=== PATIENT | male | born 1995 | race Two or more races ===

== ENCOUNTER 2023-08-01 14:37 | Emergency (ER) | payer MEDICAID, OTHER ==
[2023-08-01 15:28] LABS: Basophils # (auto) 0 10 ^3/uL (0-0.2); Basophils % (auto) 0.3 % (0.0-2.0); Eosinophils # (auto) 0.2 10 ^3/uL (0-0.8); Hematocrit 45.1 % (41.0-53.0); Hemoglobin 15.3 g/dL (13.5-17.5); Lymphocytes # (auto) 2.2 10 ^3/uL (0.4-5.4); Lymphocytes % (auto) 25.6 % (10.0-50.0); Mean Corpuscular Hemoglobin 29.5 pg (28.0-32.0); Mean Corpuscular Hgb Conc. 33.9 g/dL (32.0-36.0); Mean Corpuscular Volume 87.1 fL (80.0-100.0); Monocytes # (auto) 0.6 10 ^3/uL (0-1.3); Monocytes % (auto) 7.1 % (0.0-12.0); Neutrophils # (auto) 5.6 10 ^3/uL (1.6-8.6); Nucleated Red Blood Cells % 0.1 %; Red Blood Cells 5.18 10^6/uL (4.5-5.90); Red Cell Distribution Width 13.8 % (11.8-14.3); White Blood Cell 8.5 10^3/uL (4.4-10.8)
[2023-08-01] MEDS ORDERED: ASPirin 325 MG TAB PO ONE (15:30)
[2023-08-01] MEDS ORDERED: NITROGLYCERIN 0.4 MG SL TAB SL ONE (15:30)
[2023-08-01 15:35] LABS: Alanine Aminotransferase 65 U/L (7-40); Albumin 4.9 g/dL (3.2-4.8); Alkaline Phosphatase 85 U/L (46-116); Anion Gap 7 (5-15); Aspartate Aminotransferase 27 U/L (13-40); BUN/Creatinine Ratio 16.5 (10.0-20.0); Bilirubin, Total 0.7 mg/dL (0.2-1.0); Blood Urea Nitrogen 15 mg/dL (9-23); Calcium 9.6 mg/dL (8.7-10.4); Carbon Dioxide 27 mmol/L (20-30); Chloride 106 mmol/L (98-107); Glucose 86 mg/dL (74-106); Magnesium 2.2 mg/dL (1.6-2.6); Potassium 4.4 mmol/L (3.5-5.1); Sodium 140 mmol/L (136-145); Total Protein 7.2 g/dL (5.7-8.2)
[2023-08-01 15:45] LABS: INR 1.03 (0.9-1.15); Partial Thromboplastin Time 31.6 SEC (24.5-34.5); Prothrombin Time 10.8 sec (9.3-11.8)
[2023-08-01 16:12] LABS: Urine Bacteria NONE SEEN /hpf (None Seen); Urine Blood Negative /uL (Negative); Urine Clarity Clear (Clear); Urine Color Yellow (Yellow); Urine Mucus FEW (None Seen); Urine Protein, UAD Negative (Negative); Urine Specific Gravity 1.024 (1.001-1.035); Urine Urobilinogen Normal (Negative); Urine WBC 1 /hpf (0 - 3)
[2023-08-01 16:25] LABS: Amphetamine Screen, Urine Neg (NEGATIVE); Barbiturate Scree,Urine Neg (NEGATIVE); Benzodiazephine Screen, Urine Neg (NEGATIVE); Cannabinoid Screen, Urine Neg (NEGATIVE); Cocaine Screen, Urine Neg (NEGATIVE); Opiate Scree,Urine Neg (NEGATIVE); Phencyclidine Screen, Urine Neg (NEGATIVE)
[2023-08-01 19:39] VITALS: BP 136/88; TEMP 97.3; O2SAT 99
[2023-08-01 19:42] VITALS: PULSE 63; RESP 17
== END 2023-08-01 19:46 | disposition home or self-care (01) ==
LOC: ER 14:37
DX: R07.89 Other chest pain (principal); Z79.899 Other long term (current) drug therapy
CPT/HCPCS: 36415; 71045; 80053; 80307; 81001; 83735; 83880; 84484; 85025; 85379; 85610; 85730; 93005

== ENCOUNTER 2023-08-05 19:58 | Emergency (ER) | payer MEDICAID ==
[~2023-08-05] VITALS: Ht 180.3 cm; Wt 195.0 kg
[2023-08-05 20:44] LABS: Chloride 106 mmol/L (98-107); Potassium 3.8 mmol/L (3.5-5.1); Sodium 140 mmol/L (136-145)
[2023-08-05 20:45] LABS: Anion Gap 6 (5-15); Carbon Dioxide 28 mmol/L (20-30)
[2023-08-05 20:46] LABS: Calcium 10.2 mg/dL (8.5-10.1)
[2023-08-05 20:50] LABS: BUN/Creatinine Ratio 18.5 (10.0-20.0); Blood Urea Nitrogen 15 mg/dL (9-23); Glucose 90 mg/dL (74-106)
[2023-08-05 21:02] LABS: Basophils # (auto) 0 10 ^3/uL (0-0.2); Basophils % (auto) 0.3 % (0.0-2.0); Eosinophils # (auto) 0.2 10 ^3/uL (0-0.8); Eosinophils % (auto) 1.7 % (0.0-7.0); Hematocrit 45.6 % (41.0-53.0); Hemoglobin 15.2 g/dL (13.5-17.5); Lymphocytes # (auto) 2.4 10 ^3/uL (0.4-5.4); Lymphocytes % (auto) 26.2 % (10.0-50.0); Mean Corpuscular Hgb Conc. 33.4 g/dL (32.0-36.0); Mean Corpuscular Volume 86.9 fL (80.0-100.0); Monocytes # (auto) 0.7 10 ^3/uL (0-1.3); Monocytes % (auto) 7.8 % (0.0-12.0); Neutrophils # (auto) 5.8 10 ^3/uL (1.6-8.6); Red Blood Cells 5.25 10^6/uL (4.5-5.90); Red Cell Distribution Width 13.3 % (11.8-14.3)
[2023-08-05] MEDS ORDERED: IBUP-1455 PO (21:24)
[2023-08-05 21:54] VITALS: BP 128/83; TEMP 97.8
[2023-08-05 21:55] VITALS: PULSE 65; RESP 16; O2SAT 97
== END 2023-08-05 21:58 | disposition home or self-care (01) ==
LOC: ER 19:58
DX: R07.89 Other chest pain (principal)
CPT/HCPCS: 36415; 71045; 80048; 83880; 84484; 85025; 93005

== ENCOUNTER 2025-02-13 20:49 | Emergency (ER) | payer SELFPAY ==
[~2025-02-13] VITALS: Ht 180.3 cm; Wt 72.3 kg
[~2025-02-13 20:49] MED LIST: IBUP-1455 PO
[2025-02-14] MEDS ORDERED: ACET500T58 PO (00:50)
[2025-02-14] MEDS ORDERED: CEPH250C PO (00:50)
--- NOTE | 2025-02-14 00:51 | ED.PDOC ---
HPI Comments Patient is a otherwise healthy 29-year-old male who arrives the ED today for evaluation of right forearm laceration sustained approximately 1 hour prior to arrival. Patient states he was playing with the daughters when he ran into a chain link fence and cut his right forearm. Patient has a bandage and states it was actively bleeding. Patient's tetanus is up-to-date. Vital signs were stable on arrival. Chief Complaint: Laceration Time Seen by MD: 20:51 Primary Care Provider: NONE Reviewed Notes: Nurses Notes Allergies: Coded Allergies: NO KNOWN ALLERGIES (Unverified , 08/01/23) Home Meds Active Scripts Ibuprofen Micronized (Ibuprofen) 800 Mg Tab, 800 MG PO TID PRN, #60 TAB Prov:TONEY BROWN 08/05/23 Information Source: Patient Mode of Arrival: Ambulatory Severity: Moderate Severity of Laceration: Uncontrolled Bleeding Complexity: Intermediate Timing: Minutes Prehospital treatment: None Laceration Location: Arm Mechanism: Metal Last Tetanus: UTD Laceration Length (cm): 5 Skin Type: Linear Depth of Injury: Skin, Mucosa, SQ Tendon Injury: 0% Past Medical History PAST MEDICAL HISTORY: Denies Surgical History: Denies all surgeries Family History Family History: Reviewed,noncontributory to illness, No family hx of Cancer, No family hx of DM, No family hx of Heart heidy, No family hx of HTN, No family hx ofKidney heidy, No family hx of Liver heidy, No family hx of Lung heidy, No family hx of Stroke Social History Smoker: Non-Smoker Alcohol: Denies ETOH Use Drugs: Denies Drug Use Lives In: Home Constitutional: denies: chills, diaphoresis, fatigue, fever, malaise, sweats, weakness, others EENTM: denies: blurred vision, double vision, ear bleeding, ear discharge, ear drainage, ear pain, ear ringing, eye pain, eye redness, hearing loss, mouth pain, mouth swelling, nasal discharge, nose bleeding, nose congestion, nose pain, photophobia, tearing, throat pain, throat swelling, voice changes, others Respiratory: denies: cough, hemoptysis, orthopnea, SOB at rest, shortness of breath, SOB with excertion, stridor, wheezing, others Cardiovascular: denies: chest pain, dizzy spells, diaphoresis, Dyspnea on exertion, edema, irregular heart beat, left arm pain, lightheadedness, palpitations, PND, syncope, others Gastrointestinal: denies: abdomen distended, abdominal pain, blood streaked bowels, constipated, diarrhea, dysphagia, difficulty swallowing, hematemesis, melena, nausea, poor appetite, poor fluid intake, rectal bleeding, rectal pain, vomiting, others Genitourinary: denies: burning, dysuria, flank pain, frequency, hematuria, incontinence, penile discharge, penile sore, pain, testicle pain, testicle swelling, urgency, others Neurological: denies: dizziness, fainting, headache, left sided numbness, left sided weakness, numbness, paresthesia, pre-existing deficit, right sided numbness, right sided weakness, seizure, speech problems, tingling, tremors, weakness, others Musculoskeletal: denies: back pain, gout, joint pain, joint swelling, muscle pain, muscle stiffness, neck pain, others Integumetry: reports: laceration (To right forearm); denies: bruises, change in color, change in hair/nails, dryness, lesions, lumps, rash, wounds, others Allergic/Immunocompromised: denies: Difficulty Healing, Frequent Infections, Hives, Itching, others Hematologic/Lymphatic: denies: anemia, blood clots, easy bleeding, easy bruising, swollen glands, others Endocrine: denies: excessive hunger, excessive sweating, excessive thirst, excessive urination, flushing, intolerance to cold, intolerance to heat, unexplained weight gain, unexplained weight loss, others Psychiatric: denies: anxiety, bipolar disorder, depression, hopeless, panic disorder, schizophrenia, sleepless, suicidal, others Physical Exam General Appearance: Mild Distress (Mild distress due to right arm concerns), Normal HEENT: Normal ENT Inspection, Pharynx Normal, TMs Normal Neck: Full Range of Motion, Non-Tender, Normal, Normal Inspection Respiratory: Chest Non-Tender, Lungs Clear, No Accessory Muscle Use, No Respiratory Distress, Normal Breath Sounds Cardiovascular: No Edema, No JVD, No Murmur, No Gallop, Normal Peripheral Pulses, Regular Rate/Rhythm Breast Exam: Deferred Gastrointestinal: No Organomegaly, Non Tender, No Pulsatile Mass, Normal Bowel Sounds, Soft Genitalia: Deferred Pelvic: Deferred Rectal: Deferred Extremities: No calf tenderness, Normal capillary refill, Normal inspection, Normal range of motion, Non-tender, No pedal edema Neurologic: Alert, No Motor Deficits, Normal Affect, Normal Mood, No Sensory Deficits Cerebellar Function: Normal Reflexes: Normal Skin: Lacerations (5 cm oblique laceration noted to the anterior and lateral aspect of the right forearm. Mild active bleed. No tendon involvement.) Lymphatic: No Adenopathy Was a procedure done? Was a procedure done?: Yes Sedation Sedation?: No Other Procedure Notes 5 cc of 1% lidocaine was utilized for local anesthesia. Sterile field was placed. Copious irrigation performed. Ten 4-0 Ethilon sutures were utilized in a simple interrupted fashion to close the right forearm laceration. Minimal blood loss. Patient tolerated procedure well. Clean dressing applied. Differential diagnosis Generic Laceration: Laceration X-Ray, Labs, Meds, VS Vital Signs Date Time Temp Pulse Resp B/P (MAP) Pulse Ox O2 Delivery O2 Flow Rate FiO2 02/13/25 20:49 98.8 70 16 114/87 97 98.8 X-Ray, Labs, Meds, VS Comment Patient tolerated procedure well. Advised patient utilize antibiotics as directed until completion. Patient should return to ED or primary care provider in 10 days for re-evaluation and probable suture removal. Time of 1ST Reevaluation: 00:49 Reevaluation 1ST: Improved Consultation: PCP Patient Education/Counseling: Diagnosis, Treatment Family Education/Counseling: Diagnosis, Treatment Departure 1 Departure Time of Disposition: 00:49 Impression: Primary Impression: Forearm laceration Disposition: HOME / SELF CARE / HOMELESS Condition: Stable Additional Instructions: Advise utilizing antibiotics as directed until completion as well as pain medication as needed. Patient should return to ED or primary care provider in 10 days for re-evaluation and probable suture removal. e-Prescriptions Acetaminophen (Acetaminophen) 500 Mg Tab 500 MG PO Q4HP PRN, #30 TAB Prov: SEVERIANO FRANCO PAC 02/14/25 Cephalexin (KEFLEX CAPSULE) 250 Mg Cp 1 CAP PO QID for 7 Days, #28 CAP Prov: SEVERIANO FRANCO PAC 02/14/25 Discharged With: Self, Friend Critical Care Note Critical Care Time?: No Stability Stability form required: No Heart Score Heart Score: Heart Score Response (Comments) Value History N/A 0 EKG N/A 0 Age N/A 0 Risk Factors N/A 0 Troponin N/A 0 Total 0 SEVERIANO FRANCO PAC Feb 14, 2025 00:51
[2025-02-14 01:56] VITALS: BP 109/79; PULSE 52; RESP 18; TEMP 97.6; O2SAT 100
== END 2025-02-14 01:56 | disposition home or self-care (01) ==
LOC: ER 20:49
DX: S51.811A Laceration without foreign body of right forearm, initial encounter (principal); X58.XXXA Exposure to other specified factors, initial encounter; Y93.89 Activity, other specified; Y92.89 Other specified places as the place of occurrence of the external cause; Y99.8 Other external cause status
CPT/HCPCS: 12002

== ENCOUNTER 2025-02-23 09:14 | Emergency (ER) | payer MEDICAID, OTHER ==
[~2025-02-23] VITALS: Ht 180.3 cm; Wt 72.0 kg
[~2025-02-23 09:14] MED LIST changes: +ACET500T58 PO; +CEPH250C PO
--- NOTE | 2025-02-23 10:50 | ED.PDOC ---
History of Present Illness(SKN HPI Comments 29-year-old male presents to the ED with chief complaint of suture removal. Pt states he patient said that he had sutures placed at [facility] one week prior states that h was told to come back and get them removed. Patient has 10 sutures in the right forearm that need to be removed. area around suture site to be clean now noted discharged swelling edema noted Patient otherwise denies any other symptoms time. Chief Complaint: Suture Removal Time Seen by MD: 09:21 Primary Care Provider: NONE History of Present Illness: Nurses Notes, Medications, Allergies Allergies: Coded Allergies: NO KNOWN ALLERGIES (Unverified , 08/01/23) Home Meds Active Scripts Acetaminophen (Acetaminophen) 500 Mg Tab, 500 MG PO Q4HP PRN, #30 TAB Prov:SEVERIANO FRANCO PAC 02/14/25 Cephalexin (KEFLEX CAPSULE) 250 Mg Cp, 1 CAP PO QID for 7 Days, #28 CAP Prov:SEVERIANO FRANCO PAC 02/14/25 Ibuprofen Micronized (Ibuprofen) 800 Mg Tab, 800 MG PO TID PRN, #60 TAB Prov:TONEY BROWN 08/05/23 Information Source: Patient Mode of Arrival: Ambulatory Past Medical History PAST MEDICAL HISTORY: Denies Surgical History: Denies all surgeries Family History Family History: Reviewed,noncontributory to illness, No family hx of Cancer, No family hx of DM, No family hx of Heart heidy, No family hx of HTN, No family hx ofKidney heidy, No family hx of Liver heidy, No family hx of Lung heidy, No family hx of Stroke Social History Smoker: Non-Smoker Alcohol: Denies ETOH Use Drugs: Denies Drug Use Lives In: Home All Other Systems: Reviewed and Negative (See HPI) Physical Exam General Appearance: No Apparent Distress, Normal HEENT: Normal ENT Inspection, Pharynx Normal, TMs Normal Neck: Full Range of Motion, Non-Tender, Normal, Normal Inspection Respiratory: Chest Non-Tender, Lungs Clear, No Accessory Muscle Use, No Respiratory Distress, Normal Breath Sounds Cardiovascular: No Edema, No JVD, No Murmur, No Gallop, Normal Peripheral Pulses, Regular Rate/Rhythm Breast Exam: Deferred Gastrointestinal: No Organomegaly, Non Tender, No Pulsatile Mass, Normal Bowel Sounds, Soft Genitalia: Deferred Pelvic: Deferred Rectal: Deferred Extremities: No calf tenderness, Normal capillary refill, Normal inspection, Normal range of motion, Non-tender, No pedal edema Musculoskeletal : Apperance: Normal Neurologic: Alert, weight recorder II-XII nml as Tested, No Motor Deficits, Normal Affect, Normal Mood, No Sensory Deficits Cerebellar Function: Normal Reflexes: Normal Skin: Other (Right forearm with noted 10 sutures) Lymphatic: No Adenopathy Was a procedure done? Was a procedure done?: No Differential Diagnosis (INTG) Abscess: Abscess, Bacteremia, Cellulitis X-Ray, Labs, Meds, VS Vital Signs Date Time Temp Pulse Resp B/P (MAP) Pulse Ox O2 Delivery O2 Flow Rate FiO2 02/23/25 10:58 98.1 60 17 110/81 (91) 97 98.1 02/23/25 10:58 60 17 97 Room Air 02/23/25 09:15 99.1 60 16 126/81 97 99.1 X-Ray, Labs, Meds, VS Comment 29-year-old male presents to the ED with chief complaint of suture removal. Patient arrives alert and oriented, ABC's intact, afebrile, vital signs stable, saturating well in room air Time of 1ST Reevaluation: 10:45 Reevaluation 1ST: Improved Patient Education/Counseling: Diagnosis, Treatment Family Education/Counseling: No Family Present SEPSIS Sepsis Screen Date sepsis recognized/suspect: Feb 23, 2025 Time Sepsis recognized/suspect: 916 Recent Procedure: No On Antibiotic Therapy: No Respiratory Rate >20: No Heart Rate >90: No Temp<36 C (96.8 F) or >38.3 C: No SBP <90 or MAP <65 mmHG: No New Acute Mental Status Change: No Is the patient on CPAP, BIPAP,: No Vital Signs Date Time Temp Pulse Resp B/P (MAP) Pulse Ox O2 Delivery O2 Flow Rate FiO2 02/23/25 10:58 98.1 60 17 110/81 (91) 97 98.1 02/23/25 10:58 60 17 97 Room Air 02/23/25 09:15 99.1 60 16 126/81 97 99.1 Departure 1 Departure Time of Disposition: 10:50 Impression: Primary Impression: Visit for suture removal Disposition: HOME / SELF CARE / HOMELESS Condition: Stable Discharged With: Self Critical Care Note Critical Care Time?: No Stability Stability form required: No Heart Score Heart Score: Heart Score Response (Comments) Value History N/A 0 EKG N/A 0 Age N/A 0 Risk Factors N/A 0 Troponin N/A 0 Total 0 I personally scribed for BRENDA MORALES NP ([email or web address]) on 02/23/25 at 11:14. Electronically submitted by Nita Leonard ([facility] [email or web address]). BRENDA MORALES NP Feb 23, 2025 10:50
[2025-02-23 10:58] VITALS: BP 110/81; PULSE 60; RESP 17; TEMP 98.1; O2SAT 97
== END 2025-02-23 10:59 | disposition home or self-care (01) ==
LOC: ER 09:14
DX: S51.811D Laceration without foreign body of right forearm, subsequent encounter (principal); Z48.02 Encounter for removal of sutures; X58.XXXD Exposure to other specified factors, subsequent encounter